=== PATIENT | female | born 1965 | race Caucasian/White ===

== ENCOUNTER 2019-01-23 23:15 | Emergency (ER) | payer OTHER ==
[~2019-01-23] VITALS: Ht 175.3 cm; Wt 61.2 kg
[2019-01-23] MEDS ORDERED: IBUPROFEN 600 MG TAB PO STA (23:51)
--- NOTE | 2019-01-24 01:06 | Diagnostic Imaging Report ---
RIGHT GREAT TOE - 3 Images HISTORY: Dropped couch on foot, pain, bruising COMPARISON: None available. FINDINGS: Bones: Comminuted fracture involving the distal phalanx of the great toe with probable intra-articular extension. No aggressive osseous lesion. Joints: Osseous alignment is within normal limits and the joint spaces are well-maintained. Soft tissues: Regional soft tissue swelling. IMPRESSION: Acute to subacute comminuted intra-articular fracture involving the distal phalanx great toe. Signed by: Dr. Fernando Mayer D.O., M.M.M. on 01/24/2019 1:03 AM
[2019-01-24 01:53] VITALS: BP 111/81
== END 2019-01-24 02:00 | disposition home or self-care (01) ==
LOC: ER 23:15
DX: S92.411A Displaced fracture of proximal phalanx of right great toe, initial encounter for closed fracture (principal); W20.8XXA Other cause of strike by thrown, projected or falling object, initial encounter; Y93.E6 Activity, residential relocation; Y92.008 Other place in unspecified non-institutional (private) residence as the place of occurrence of the external cause; F31.9 Bipolar disorder, unspecified
CPT/HCPCS: 99284